=== PATIENT | male | born 1980 | race African-American/Black ===

== ENCOUNTER 2021-05-25 09:36 | Inpatient (IN) | payer OTHER ==
[~2021-05-25] VITALS: Ht 172.7 cm; Wt 149.2 kg
[2021-05-25 10:23] LABS: HEMOGLOBIN 16.8 gm/dl (14.0-17.5); RED BLOOD COUNT 5.54 M/UL (4.20-5.50); WHITE BLOOD COUNT 6.2 K/UL (4.5-11.0)
[2021-05-25 11:04] LABS: BUN/CREATININE RATIO 8 (0-10)
[2021-05-25] MEDS ORDERED: TESTOSTERO200 MG/1 M IM (15:07)
[2021-05-25] MEDS ORDERED: GLIMEPIRIDE4 MG PO (15:09)
[2021-05-25] MEDS ORDERED: MONTELUKAST SOD10 MG PO (15:09)
[2021-05-25] MEDS ORDERED: METFORMIN HCL1000 MG PO (15:09)
[2021-05-25] MEDS ORDERED: OZEMPIC1 MG/0.71 SQ (15:10)
[2021-05-25] MEDS ORDERED: NICOTINE PATCH1 EAC1 TD (15:11)
[2021-05-25] MEDS ORDERED: PRAVASTATIN SOD40 MG PO (15:11)
[2021-05-25] MEDS ORDERED: LISINOPRIL40 MG PO (15:12)
[2021-05-25] MEDS ORDERED: FAMOTIDINE20 MG PO (15:13)
[2021-05-26 01:54] LABS: HEMOGLOBIN 15.9 gm/dl (14.0-17.5); RED BLOOD COUNT 5.37 M/UL (4.20-5.50)
[2021-05-26 01:55] LABS: WHITE BLOOD COUNT 3.4 K/UL (4.5-11.0)
[2021-05-26 02:56] LABS: BUN/CREATININE RATIO 18 (0-10)
[2021-05-26 10:11] LABS: BORDETELLA PARAPERTUSSIS Not Detected (Not Detectd); BORDETELLA PERTUSSIS Not Detected (Not Detectd); CHLAMYDIA PNEUMONIAE Not Detected (Not Detectd); CORONAVIRUS HKU1 Not Detected (Not Detectd); CORONAVIRUS NL63 Not Detected (Not Detectd); CORONAVIRUS OC43 Not Detected (Not Detectd); CORONOAVIRUS 229E Not Detected (Not Detectd); HUMAN METAPNEUMOVIRUS Not Detected (Not Detectd); HUMAN RHINOVIRUS/ENTEROVIRUS Not Detected (Not Detectd); INFLUENZA A Not Detected (Not Detectd); INFLUENZA B Not Detected (Not Detectd); MYCOPLASMA PNEUMONIAE Not Detected (Not Detectd); PARAINFLUENZA VIRUS 1 Not Detected (Not Detectd); PARAINFLUENZA VIRUS 2 Not Detected (Not Detectd); PARAINFLUENZA VIRUS 3 Not Detected (Not Detectd); PARAINFLUENZA VIRUS 4 Not Detected (Not Detectd); RESPIRATORY SYNCYTIAL VIRUS Not Detected (Not Detectd)
--- NOTE | 2021-05-26 10:19 | NUR ---
MD STATES PT CAN BE TAKEN OFF OF TELE AND PULSE OX TO TAKE A SHOWER
[2021-05-26 12:36] LABS: SARS-CoV-2 NOT DETECTED (Not Detectd)
[2021-05-27 02:50] LABS: BUN/CREATININE RATIO 24 (0-10)
--- NOTE | 2021-05-27 17:35 | NUR ---
PT ENTERED THE FLOOR AT APPROXIMATELY 1700. PT IS A&OX3. [id number] NC AND TELEMTRY APPLIED. PT IS IN NO SIGN OF DISTRESS AND AMBULATORY. WCTM
[2021-05-28 03:39] LABS: BUN/CREATININE RATIO 24 (0-10)
[2021-05-28] MEDS ORDERED: PROVENTIL HFA6.7 GM INH (14:38)
[2021-05-28] MEDS ORDERED: SYMBICORT 80-10.2 GM INH (14:38)
== END 2021-05-28 15:30 | disposition home or self-care (01) | DRG 189 ==
LOC: ER1 09:36 → PROG CARE 13:00 → M/S 13:00 → CDU 13:00 → PROG CARE 15:12 → M/S 05-27 16:40
PROVIDERS: Emergency Medicine; Physician Assistant; ADMIT Internal Medicine
PROC: 5A09357 Assistance with Respiratory Ventilation, Less than 24 Consecutive Hours, Continuous Positive Airway Pressure (ICD-10-PCS; principal; 2021-05-25)
PROC: 5A09357 Assistance with Respiratory Ventilation, Less than 24 Consecutive Hours, Continuous Positive Airway Pressure (ICD-10-PCS; 2021-05-26)
PROC: 5A09357 Assistance with Respiratory Ventilation, Less than 24 Consecutive Hours, Continuous Positive Airway Pressure (ICD-10-PCS; 2021-05-27)
PROC: 5A09357 Assistance with Respiratory Ventilation, Less than 24 Consecutive Hours, Continuous Positive Airway Pressure (ICD-10-PCS; 2021-05-28)
DX: J96.21 Acute and chronic respiratory failure with hypoxia (principal); Z68.43 Body mass index [BMI] 50.0-59.9, adult; J44.1 Chronic obstructive pulmonary disease with (acute) exacerbation; I10 Essential (primary) hypertension; J96.22 Acute and chronic respiratory failure with hypercapnia; E78.5 Hyperlipidemia, unspecified; Z20.822 Contact with and (suspected) exposure to COVID-19; K21.9 Gastro-esophageal reflux disease without esophagitis; F17.200 Nicotine dependence, unspecified, uncomplicated; E11.65 Type 2 diabetes mellitus with hyperglycemia; E66.01 Morbid (severe) obesity due to excess calories; E87.5 Hyperkalemia; G47.33 Obstructive sleep apnea (adult) (pediatric); Z99.81 Dependence on supplemental oxygen; Z83.3 Family history of diabetes mellitus; Z98.890 Other specified postprocedural states
CPT/HCPCS: 0241U; 36415; 36600; 71045; 80048; 80053; 80307; 82550; 82553; 82785; 82803; 82962; 83605; 83735; 83880; 84484; 85025; 87040; 87633; 93005; 94640; 94660; 94664; 94760; 96374; 99285; J1650; J2920; J2930; J3475; Q9967